=== PATIENT | male | born 1985 | race Caucasian/White ===

== ENCOUNTER 2021-11-07 20:12 | Emergency (ER) | payer OTHER ==
[2021-11-07 21:54] LABS: ACETAMINOPHEN 0 ug/mL (10-30)
== END 2021-11-07 23:00 ==
LOC: JD.ED 20:12
DX: F32.A Depression, unspecified (principal); E03.9 Hypothyroidism, unspecified; E78.00 Pure hypercholesterolemia, unspecified; I10 Essential (primary) hypertension; Z88.8 Allergy status to other drugs, medicaments and biological substances; Z79.899 Other long term (current) drug therapy; Z86.16 Personal history of COVID-19; Z72.0 Tobacco use; Z20.822 Contact with and (suspected) exposure to COVID-19
CPT/HCPCS: 36415; 80053; 80143; 80179; 80306; 80307; 84443; 85007; 85027; 93005; 93010; 99285; 99285-25; U0002

== ENCOUNTER 2025-03-04 16:58 | Emergency (ER) | payer OTHER ==
[2025-03-04] MEDS: cefTRIAXone 1 GM, Lidocaine 1% 2.1 ML IM ONE (17:42)
== END 2025-03-04 17:58 | disposition home or self-care (01) ==
LOC: JD.ED 16:58
DX: S30.1XXA Contusion of abdominal wall, initial encounter (principal); N45.1 Epididymitis; I10 Essential (primary) hypertension; E78.00 Pure hypercholesterolemia, unspecified; E03.9 Hypothyroidism, unspecified; Z88.8 Allergy status to other drugs, medicaments and biological substances; Z79.890 Hormone replacement therapy; Z79.899 Other long term (current) drug therapy; Z86.16 Personal history of COVID-19; W22.8XXA Striking against or struck by other objects, initial encounter
CPT/HCPCS: 96372; 99283; A9270; J0696; J2003